=== PATIENT | female | born 1985 | race Caucasian/White ===

== ENCOUNTER 2017-07-29 18:34 | Emergency (ER) | payer MEDICAID ==
[~2017-07-29] VITALS: Ht 175.3 cm; Wt 53.2 kg
[~2017-07-29 18:34] MED LIST: ADDAPRIN200 MG PO; CLINDAMYCIN300 MG PO; NO HOME MEDICATIONS; NORCO 325 MG-51 TA1 PO; PRENATAL1 TA1 PO; TUMS500 MG PO; TYLENOL 325MG325 MG PO
[2017-07-29 21:01] VITALS: BP 120/85
== END 2017-07-29 21:01 | disposition home or self-care (01) ==
LOC: ED 18:34
DX: F41.9 Anxiety disorder, unspecified (principal); Z87.898 Personal history of other specified conditions; F31.9 Bipolar disorder, unspecified; Z32.02 Encounter for pregnancy test, result negative; Z20.5 Contact with and (suspected) exposure to viral hepatitis; Z20.828 Contact with and (suspected) exposure to other viral communicable diseases; Z20.2 Contact with and (suspected) exposure to infections with a predominantly sexual mode of transmission

== ENCOUNTER 2018-05-27 10:29 | Emergency (ER) | payer MEDICAID ==
[~2018-05-27] VITALS: Ht 170.2 cm; Wt 62.5 kg
[2018-05-27] MEDS ORDERED: PRENATAL VITAMI1 T12 PO (10:51)
[2018-05-27 11:22] LABS: EOS # 0.2 (0.04-0.40); EOS % 1.2 % (1.0-5.0); HEMATOCRIT 33.2 % (37.0-47.0); HEMOGLOBIN 10.7 g/dL (12.5-16.0); LYMPH# 1.9 (1.50-4.00); MEAN CELL VOLUME 83 fl (78-100); MEAN CORPUSCULAR HEMOGLOBIN 27 pg (27-31); MEAN CORPUSCULAR HGB CONC 32 g/dL (33-37); MEAN PLATELET VOLUME 10.7 fl (7.4-10.4); MONO # 1.4 (0.20-0.80); PLATELET COUNT 349 K/mm3 (130-400); RED BLOOD COUNT 4.01 M/mm3 (4.10-5.30); RED CELL DISTRIBUTION WIDTH 15.7 % (11.5-14.5); WHITE BLOOD COUNT 14.5 K/mm3 (4.8-10.8)
[2018-05-27 11:27] VITALS: BP 117/73
[2018-05-27 11:35] LABS: NEU # 10.9 (1.40-6.50)
[2018-05-27 12:06] LABS: URINE APPEARANCE CLEAR; URINE COLOR YELLOW
[2018-05-27 12:07] LABS: URINE BILIRUBIN NEGATIVE (NEGATIVE); URINE BLOOD NEGATIVE (NEGATIVE); URINE GLUCOSE NEGATIVE (NEGATIVE); URINE KETONE NEGATIVE (NEGATIVE); URINE LEUKOCYTE ESTERASE NEGATIVE (NEGATIVE); URINE NITRATE NEGATIVE (NEGATIVE); URINE PROTEIN(semi-quant) TRACE mg/dL (NEGATIVE); URINE UROBILINOGEN NORMAL (NORMAL)
== END 2018-05-27 11:11 | disposition short-term general hospital (02) ==
LOC: ED 10:29
PROVIDERS: Nurse Practitioner Primary Care
DX: O62.8 Other abnormalities of forces of labor (principal); O99.323 Drug use complicating pregnancy, third trimester; F15.10 Other stimulant abuse, uncomplicated; O99.313 Alcohol use complicating pregnancy, third trimester; F10.10 Alcohol abuse, uncomplicated; O09.33 Supervision of pregnancy with insufficient antenatal care, third trimester; Z3A.40 40 weeks gestation of pregnancy; O99.333 Smoking (tobacco) complicating pregnancy, third trimester; F17.200 Nicotine dependence, unspecified, uncomplicated

== ENCOUNTER 2021-04-23 15:14 | Emergency (ER) | payer OTHER ==
[~2021-04-23 15:14] MED LIST changes: +PRENATAL VITAMI1 T12 PO
[2021-04-23 18:03] VITALS: BP 132/73
== END 2021-04-23 18:10 | disposition home or self-care (01) ==
LOC: ED 15:14
DX: S60.221A Contusion of right hand, initial encounter (principal); R40.2410 Glasgow coma scale score 13-15, unspecified time; F17.210 Nicotine dependence, cigarettes, uncomplicated; M25.512 Pain in left shoulder; R07.9 Chest pain, unspecified; M25.522 Pain in left elbow; M79.632 Pain in left forearm; Z23 Encounter for immunization; Y04.0XXA Assault by unarmed brawl or fight, initial encounter; Y92.009 Unspecified place in unspecified non-institutional (private) residence as the place of occurrence of the external cause
CPT/HCPCS: 90715

== ENCOUNTER 2021-06-10 18:01 | Emergency (ER) | payer SELFPAY ==
[2021-06-10 20:41] LABS: URINE APPEARANCE CLOUDY; URINE BILIRUBIN NEGATIVE (NEGATIVE); URINE COLOR YELLOW; URINE GLUCOSE NEGATIVE (NEGATIVE); URINE KETONE NEGATIVE (NEGATIVE); URINE PROTEIN(semi-quant) TRACE mg/dL (NEGATIVE); URINE UROBILINOGEN NORMAL (NORMAL)
[2021-06-10 20:42] LABS: URINE BLOOD 250 ery/uL (NEGATIVE); URINE LEUKOCYTE ESTERASE NEGATIVE (NEGATIVE); URINE NITRATE NEGATIVE (NEGATIVE); URINE WBC 0-1 /hpf (0-3)
[2021-06-10 21:59] VITALS: BP 105/64
== END 2021-06-10 21:59 | disposition home or self-care (01) ==
LOC: ED 18:01
PROVIDERS: Family Medicine
DX: F10.129 Alcohol abuse with intoxication, unspecified (principal); F15.10 Other stimulant abuse, uncomplicated; F17.290 Nicotine dependence, other tobacco product, uncomplicated